=== PATIENT | female | born 1985 | race American Indian/Alaskan Native ===

== ENCOUNTER 2019-03-08 13:36 | Emergency (ER) | payer OTHER ==
[2019-03-08 13:36] VITALS: BMI 25.0
[2019-03-08 14:16] LABS: BASO # 0.1 K/uL (0.0-0.2); EOS # 0.1 K/uL (0.0-0.7); EOS % 0.9 % (0.0-4.0); HEMOGLOBIN 11.3 g/dL (11.0-16.0); LYMPH % 23.4 % (20.0-40.0); MEAN CELL VOLUME 71.2 fL (81.0-99.0); MEAN CORPUSCULAR HEMOGLOBIN 23.3 pg (27.0-31.0); MEAN CORPUSCULAR HGB CONC 32.7 g/dL (33.0-37.0); MEAN PLATELET VOLUME 8.1 fL (7.2-11.7); MONO # 0.7 K/uL (0.0-0.8); MONO % 7.7 % (0.0-10.0); NEUT # 5.8 K/uL (1.8-7.0); RBC 4.87 Mil/uL (3.80-5.20); RED CELL DISTRIBUTION WIDTH 17.9 % (11.5-14.5); WHITE BLOOD COUNT 8.7 K/uL (4.8-10.8)
[2019-03-08 14:23] LABS: SQUAMOUS EPITHIAL 13 /hpf (0-5); URINE BACTERIA RARE (<OCC); URINE BILIRUBIN NEGATIVE (NEGATIVE); URINE BLOOD 2+ (NEGATIVE); URINE CLARITY Hazy (Clear); URINE COLOR Yellow (YELLOW); URINE GLUCOSE (UA) NORMAL (Normal); URINE LEUKOCYTE ESTERASE 1+ Leu/uL (Negative); URINE PROTEIN NEGATIVE (NEGATIVE)
[2019-03-08 14:28] LABS: ALB/GLOB RATIO 1.2 (1.0-2.1); ALBUMIN 4.8 g/dL (3.5-5.0); ALT/SGPT 11 U/L (9-52); AST/SGOT 23 U/L (14-36); BLOOD UREA NITROGEN 10 mg/dL (7-17); CALCIUM 9.9 mg/dl (8.6-10.4); GFR NON-AFRICAN AMERICAN 52
--- NOTE | 2019-03-08 15:18 | C.PDOC ---
History Of Present Illness 33 y/o female presents to ED with chief complaints of brownish vaginal spotting and mild suprapubic cramps. Patient is known to be around 5 weeks. She had an US back in 02/28/19 which was negative for IUT. Patient denies any other medical complaints. Time Seen by Provider: 03/08/19 13:41 Chief Complaint (Nursing): Female Genitourinary History Per: Patient History/Exam Limitations: no limitations Onset/Duration Of Symptoms: Hrs Current Symptoms Are (Timing): Still Present Past Medical History Reviewed: Historical Data, Nursing Documentation, Vital Signs Vital Signs: Last Vital Signs Temp 98.7 F 03/08/19 13:38 Pulse 79 03/08/19 13:38 Resp 16 03/08/19 13:38 BP 131/86 03/08/19 13:38 Pulse Ox 98 03/08/19 13:38 Primary Care Provider: FAMILY PROVIDER,NO - Medical History PMH: Surgical History: No Surg Hx Family History: States: No Known Family Hx - Social History Hx Tobacco Use: No Hx Alcohol Use: Yes Hx Substance Use: No - Immunization History Hx Tetanus Toxoid Vaccination: No Hx Influenza Vaccination: No Hx Pneumococcal Vaccination: No Review Of Systems Except As Marked, All Systems Reviewed And Found Negative. Constitutional: Negative for: Fever, Chills Gastrointestinal: Positive for: Abdominal Pain (mild suprapubic cramps). Negative for: Nausea, Vomiting Genitourinary: Positive for: Other (Vaginal spotting). Negative for: Dysuria, Hematuria Musculoskeletal: Negative for: Back Pain Physical Exam - Physical Exam Appears: Non-toxic, No Acute Distress Skin: Warm, Dry Head: Atraumatic, Normacephalic Eye(s): bilateral: Normal Inspection Oral Mucosa: Moist Neck: Supple Cardiovascular: Rhythm Regular Respiratory: Normal Breath Sounds Gastrointestinal/Abdominal: Soft, No Tenderness, No Guarding, No Rebound Extremity: Bilateral: Atraumatic, Normal Color And Temperature Neurological/Psych: Oriented x3, Normal Speech ED Course And Treatment - Laboratory Results Result Diagrams: 03/08/19 14:13 03/08/19 14:13 Lab Results: Total Bilirubin 0.3 mg/dL (0.2-1.3) 03/08/19 14:13 AST 23 U/L (14-36) 03/08/19 14:13 ALT 11 U/L (9-52) 03/08/19 14:13 Alkaline Phosphatase 62 U/L (38-126) 03/08/19 14:13 Total Protein 8.9 g/dL (6.3-8.3) H 03/08/19 14:13 Albumin 4.8 g/dL (3.5-5.0) 03/08/19 14:13 Globulin 4.1 gm/dL (2.2-3.9) H 03/08/19 14:13 Albumin/Globulin Ratio 1.2 (1.0-2.1) 03/08/19 14:13 Urine Color Yellow (YELLOW) 03/08/19 14:13 Urine Clarity Hazy (Clear) 03/08/19 14:13 Urine pH 5.0 (5.0-8.0) 03/08/19 14:13 Ur Specific [place] 1.028 (1.003-1.030) 03/08/19 14:13 Urine Protein Negative mg/dL (NEGATIVE) 03/08/19 14:13 Urine Glucose (UA) Normal mg/dL (Normal) 03/08/19 14:13 Urine Ketones Trace mg/dL (NEGATIVE) 03/08/19 14:13 Urine Blood 2+ (NEGATIVE) H 03/08/19 14:13 Urine Nitrate Negative (NEGATIVE) 03/08/19 14:13 Urine Bilirubin Negative (NEGATIVE) 03/08/19 14:13 Urine Urobilinogen 4.0 mg/dL (0.2-1.0) H 03/08/19 14:13 Ur Leukocyte Esterase 1+ Leti/uL (Negative) H 03/08/19 14:13 Urine WBC (Auto) 15 /hpf (0-5) H 03/08/19 14:13 Urine RBC (Auto) 24 /hpf (0-3) H 03/08/19 14:13 Ur Squamous Epith Cells 13 /hpf (0-5) H 03/08/19 14:13 Urine Bacteria Rare (<OCC) 03/08/19 14:13 Beta HCG, Quant 7.96 mIU/ML 03/08/19 14:13 O2 Sat by Pulse Oximetry: 98 (RA) Pulse Ox Interpretation: Normal - CT Scan/US Pelvis/Transvag US Other Rad Studies (CT/US): Read By Radiologist, Radiology Report Reviewed CT/US Interpretation: FINDINGS: UTERUS: Measures 7.1 x 5.1 x 6.2 cm. Normal in size and appearance. No fibroid or other mass lesion seen. ENDOMETRIUM: Measures 16 mm in diameter. Unremarkable. CERVIX: No cervical abnormality identified. RIGHT OVARY: Measures 4.6 x 4 x 4.3 cm. No solid mass. Normal flow. Complex cyst seen at the right ovary measures 3.2 x 3 x 3.2 centimeter. LEFT OVARY: Measures 3 x 2.7 x 3.3 cm. No solid mass. Normal flow. FREE FLUID: No significant free fluid noted. OTHER FINDINGS: None. IMPRESSION: No evidence of intrauterine . Right ovary complex cystic lesion measures 3.2 centimeter. Close follow-up re-evaluation and correlation with beta HCG level is recommended. Medical Decision Making Medical Decision Making: Plan: --Labs --Urine Culture --Urinalysis --Pelvis/Transvaginal US 16:[address] Haines, OBGYN. 16:[address] Haines, recommended to discharge patient home and follow up with her next week. Disposition Discussed With : Mary Haines Counseled Patient/Family Regarding: Diagnosis, Need For Followup - Disposition Referrals: Mary Haines MD [Staff Provider] - Disposition: HOME/ ROUTINE Disposition Time: 16:38 Condition: STABLE Prescriptions: Nitrofurantoin Monohyd/M-Cryst [Macrobid 100 mg Capsule] 100 mg PO BID #10 capsule Instructions: Threatened Miscarriage Forms: [facility] (Sudanese) - POA Present On Arrival: None - Clinical Impression Clinical Impression: Threatened miscarriage - Scribe Statement The provider has reviewed the documentation as recorded by the Kelsi Chandler Provider Attestation: All medical record entries made by the Kelsi were at my direction and personally dictated by me. I have reviewed the chart and agree that the record accurately reflects my personal performance of the history, physical exam, medical decision making, and the department course for this patient. I have also personally directed, reviewed, and agree with the discharge instructions and disposition.
--- NOTE | 2019-03-08 15:51 | US ---
Date of service: 03/08/2019 HISTORY: r/o ectopic COMPARISON: None available. TECHNIQUE: Transabdominal and endovaginal ultrasound examination of the pelvis was performed. FINDINGS: UTERUS: Measures 7.1 x 5.1 x 6.2 cm. Normal in size and appearance. No fibroid or other mass lesion seen. ENDOMETRIUM: Measures 16 mm in diameter. Unremarkable. CERVIX: No cervical abnormality identified. RIGHT OVARY: Measures 4.6 x 4 x 4.3 cm. No solid mass. Normal flow. Complex cyst seen at the right ovary measures 3.2 x 3 x 3.2 centimeter. LEFT OVARY: Measures 3 x 2.7 x 3.3 cm. No solid mass. Normal flow. FREE FLUID: No significant free fluid noted. OTHER FINDINGS: None. IMPRESSION: No evidence of intrauterine . Right ovary complex cystic lesion measures 3.2 centimeter. Close follow-up re-evaluation and correlation with beta HCG level is recommended.
[2019-03-08 16:50] VITALS: BP 131/81; PULSE 86; RESP 20; TEMP 99.4; O2SAT 100
== END 2019-03-08 16:50 | disposition home or self-care (01) ==
LOC: C.ER 13:36
DX: O20.0 Threatened abortion (principal); Z3A.01 Less than 8 weeks gestation of pregnancy